=== PATIENT | male | born 1990 | race Caucasian/White ===

== ENCOUNTER 2022-07-13 18:35 | Emergency (ER) | payer BC ==
[2022-07-13] MEDS ORDERED: Lidocaine/Epineph/Tetracaine 3 ML Syringe TOP STA (18:50)
[2022-07-13] MEDS ORDERED: Diphtheria,Pertussis(Acell),Tetanus Vaccine 0.5 ML Syringe IM ONE (18:51)
[2022-07-13] MEDS ORDERED: Lidocaine 1% 5 ML VIAL INJECT STA (19:29)
== END 2022-07-13 20:09 | disposition home or self-care (01) ==
LOC: MW.ED 18:35
DX: S01.01XA Laceration without foreign body of scalp, initial encounter (principal); Z23 Encounter for immunization; W22.8XXA Striking against or struck by other objects, initial encounter
CPT/HCPCS: 12002; 90471; 90715; 99282; A9270; 12013; 99283; J3490

== ENCOUNTER 2025-01-11 18:35 | Emergency (ER) | payer SELFPAY ==
[2025-01-11] MEDS: Bacitracin Oint 1 GM U/D Packet TOP ONE (19:46)
== END 2025-01-11 20:10 | disposition home or self-care (01) ==
LOC: MW.ED 18:35
DX: S61.210A Laceration without foreign body of right index finger without damage to nail, initial encounter (principal); E78.00 Pure hypercholesterolemia, unspecified; Z79.899 Other long term (current) drug therapy; W26.0XXA Contact with knife, initial encounter
CPT/HCPCS: 12002; 73130; 99283; J2003